=== PATIENT | male | born 1955 | race African-American/Black ===

== ENCOUNTER → 2019-09-04 | Outpatient (CLI) | payer OTHER ==
--- NOTE | 2019-09-04 16:56 | Diagnostic Imaging Report ---
Indication: Altered mental status Technique: sagittal T1 fast spin echo, axial T1 FLAIR, axial T2 FLAIR, axial T2 FS PROPELLER, axial T2* GRE, axial diffusion weighted images. ADC and exponential ADC maps generated Comparison: none Findings: No abnormal areas of restricted diffusion to suggest acute infarction. No acute hemorrhage or edema. No mass effect nor midline shift. Normal size ventricles and extra axial CSF spaces. Punctate and occasionally confluent areas of T2 signal hyperintensity are seen within the deep white matter bilaterally. The vascular flow voids are preserved.. Visualized orbits and sinuses are unremarkable. Impression: Negative for acute intracranial bleed, mass effect, or infarct. Periventricular deep white matter T2 hyperintensities, most likely on the basis of chronic deep white matter microvascular ischemic change. Demyelinating disease also a possibility.
== END | disposition home or self-care (01) ==
LOC: MRI 10:45
DX: R41.82 Altered mental status, unspecified (principal)
CPT/HCPCS: 70551